=== PATIENT | male | born 1930 | race Caucasian/White ===

== ENCOUNTER 2016-12-11 11:18 | Emergency (ER) | payer OTHER ==
--- NOTE | 2016-12-11 12:17 | EDM.PDOC ---
ED HPI GENERAL MEDICAL PROBLEM - General Chief Complaint: Abdominal Pain Stated Complaint: BOWEL OBSTRUCTION Time Seen by Provider: 12/11/16 12:14 Source of Information: Reports: Patient, Family History Limitations: Reports: No Limitations - History of Present Illness INITIAL COMMENTS - FREE TEXT/NARRATIVE: 86-year-old male with chronic abdominal pain, constipation issues as a lower abdominal discomfort and is unable to have a bowel movement for the last 2-3 days. He's been giving himself enemas without any results. He has significant rectal pain. No nausea or vomiting, no fevers. Denies abdominal distention. He has had hemorrhoid surgeries but no other intra-abdominal surgeries in the past. Onset: Gradual (Over the past 3 days) Location: Reports: Other (His pain is lower abdominal and perirectal) Severity: Moderate Associated Symptoms: Denies: Chest Pain, Fever/Chills, Loss of Appetite, Nausea/ Vomiting, Shortness of Breath Abdomen Pain Score (Numeric/FACES): 2 - Related Data Allergies Allergy/AdvReac Type Severity Reaction Status Date / Time No Known Allergies Allergy Verified 12/11/16 11:54 Home Meds: Home Meds Diltiazem [Dilacor XR] 180 mg PO DAILY 12/11/16 [History] Etanercept [Enbrel] 50 mg SQ WEEKLY 12/11/16 [History] Methotrexate 10 mg PO Q7D 12/11/16 [History] Past Medical History HEENT History: Reports: Impaired Vision Gastrointestinal History: Reports: Bowel Obstruction, Other (See Below) Other Gastrointestinal History: constipation Musculoskeletal History: Reports: Arthritis, Fracture Neurological History: Reports: Other (See Below) Other Neuro History: short term 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 Social & Family History - Tobacco Use Smoking Status *Q: Never Smoker - Caffeine Use Caffeine Use: Reports: None - Recreational Drug Use Recreational Drug Use: No ED ROS GENERAL - Review of Systems Review Of Systems: See Below Constitutional: Denies: Fever, Chills HEENT: Reports: No Symptoms Respiratory: Denies: Shortness of Breath Cardiovascular: Denies: Chest Pain GI/Abdominal: Reports: Abdominal Pain, Constipation : Reports: No Symptoms Neurological: Reports: No Symptoms ED EXAM, GI/ABD - Physical Exam Exam: See Below Exam Limited By: No Limitations General Appearance: Alert, Mild Distress (Patient is fairly uncomfortable) Eyes: Bilateral: EOMI Respiratory/Chest: No Respiratory Distress Cardiovascular: Regular Rate, Rhythm GI/Abdominal Exam: Soft. No: Guarding, Rigid Rectal (Males) Exam: Tenderness (Patient has significant tenderness to digital exam of the rectum, moderate firm stool is present. No masses, stool color is normal. He does not have an exam of impaction.) Neurological: Alert, Oriented Psychiatric: Normal Affect, Normal Mood Skin Exam: Warm, Dry Course - Vital Signs Last Recorded V/S: Last Vital Signs Temp 98.1 F 12/11/16 11:59 Pulse 62 12/11/16 13:38 Resp 14 12/11/16 13:38 BP 105/53 L 12/11/16 13:38 Pulse Ox 99 12/11/16 13:38 - Orders/Labs/Meds Orders: Active Orders 24 hr Category Date Time Status Abdomen Pelvis wo Cont [CT] Stat Exams 12/11/16 12:13 Taken Labs: Laboratory Tests 12/11/16 12/11/16 Range/Units 12:25 12:25 WBC 4.0 L (4.5-11.0) K/uL RBC 4.04 L (4.30-5.90) M/uL Hgb 12.8 (12.0-15.0) g/dL Hct 38.7 L (40.0-54.0) % MCV 96 (80-98) fL MCH 32 H (27-31) pg MCHC 33 (32-36) % Plt Count 176 (150-400) K/uL Neut % (Auto) 63 (36-66) % Lymph % (Auto) 23 L (24-44) % [place] % (Auto) 10 H (2-6) % Eos % (Auto) 3 (2-4) % Baso % (Auto) 1 (0-1) % Sodium 142 (140-148) mmol/L Potassium 3.9 (3.6-5.2) mmol/L Chloride 106 (100-108) mmol/L Carbon Dioxide 29 (21-32) mmol/L Anion Gap 6.8 (5.0-14.0) mmol/L BUN 18 (7-18) mg/dL Creatinine 1.0 (0.8-1.3) mg/dL Est Cr Clr Drug Dosing 59.28 mL/min Estimated GFR (MDRD) > 60 (>60) Glucose 113 H (74-106) mg/dL Calcium 8.6 (8.5-10.1) mg/dL Total Bilirubin 1.0 (0.2-1.0) mg/dL AST 17 (15-37) U/L ALT 20 (12-78) U/L Alkaline Phosphatase 54 (46-116) U/L Total Protein 7.7 (6.4-8.2) g/dL Albumin 3.5 (3.4-5.0) g/dL Globulin 4.2 H (2.3-3.5) g/dL Albumin/Globulin Ratio 0.8 L (1.2-2.2) Meds: Medications Discontinued Medications Generic Name Dose Route Start Last Admin Trade Name Freq PRN Reason Stop Dose Admin Lidocaine HCl 10 ml 12/11/16 13:10 12/11/16 13:15 Xylocaine 2% Jelly MUCMEM 12/11/16 13:11 10 ml ONETIME ONE Administration - Re-Assessments/Exams Free Text/Narrative Re-Assessment/Exam: 12/11/16 12:17 CBC and CMP will be obtained, and prior to any enemas a abdomen and pelvis CT to rule out other form of obstruction will be obtained. 12/11/16 14:59 Labs were reassuring, CT scan confirmed some rectal stool but no obstruction or inflammatory process. The patient was given several enemas without a lot of success. I'm going to recommend daily MiraLAX for several days and he can recheck in 3-4 days if not improving satisfactorily. Departure - Departure Time of Disposition: 15:32 Disposition: Home, Self-Care 01 Condition: Good (All) Clinical Impression: Constipation by delayed colonic transit - Discharge Information Instructions: Constipation, Adult, [id number] Referrals: PCP,None [Primary Care Provider] - Forms: ED Department Discharge Care Plan Goals: Try MiraLAX 2-3 times daily for the next few days to clear constipation. Recheck in 3-4 days if not improving satisfactorily. - My Orders Last 24 Hours: My Active Orders 12/11/16 12:13 Abdomen Pelvis wo Cont [CT] Stat - Assessment/Plan Last 24 Hours: My Active Orders 12/11/16 12:13 Abdomen Pelvis wo Cont [CT] Stat
[2016-12-11] MEDS ORDERED: Lidocaine 2% Jelly 10 ML Urojet MUCMEM ONE (13:10)
[2016-12-11 13:39] VITALS: BP 105/53
== END 2016-12-11 15:32 | disposition home or self-care (01) ==
LOC: JP.ED 11:18
DX: K59.01 Slow transit constipation (principal); M19.90 Unspecified osteoarthritis, unspecified site; Z79.899 Other long term (current) drug therapy
CPT/HCPCS: 36415; 74176; 80053; 85025; 99284; 99284-25

== ENCOUNTER 2018-08-12 16:26 | Inpatient (IN) | payer MEDICARE ==
--- NOTE | 2018-08-12 16:52 | EDM.PDOC ---
ED HPI GENERAL MEDICAL PROBLEM - General Chief Complaint: General Stated Complaint: VIA [facility] Time Seen by Provider: 08/12/18 16:47 Source of Information: Reports: Patient History Limitations: Reports: No Limitations - History of Present Illness INITIAL COMMENTS - FREE TEXT/NARRATIVE: [facility]. He had been at a activity at [employer] and he must of left the facility and the alarm did not go off. Onset: Today, Other (pt took off from [facility]. ) Duration: Hour(s): Location: Reports: Chest, Other ( fever. ) Associated Symptoms: Reports: Fever/Chills - Related Data Allergies Allergy/AdvReac Type Severity Reaction Status Date / Time No Known Allergies Allergy Verified 12/11/16 11:54 Home Meds: Home Meds Diltiazem [Dilacor XR] 180 mg PO DAILY 12/11/16 [History] Etanercept [Enbrel] 50 mg SQ WEEKLY 12/11/16 [History] Methotrexate 10 mg PO Q7D 12/11/16 [History] Past Medical History HEENT History: Reports: Impaired Vision Gastrointestinal History: Reports: Bowel Obstruction, Other (See Below) Other Gastrointestinal History: constipation Musculoskeletal History: Reports: Arthritis, Fracture Neurological History: Reports: Alzheimers Disease, Other (See Below) 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 He is normally ) HEENT: Reports: No Symptoms Respiratory: Reports: Cough, Sputum Cardiovascular: Reports: No Symptoms Endocrine: Reports: No Symptoms GI/Abdominal: Reports: No Symptoms : Reports: No Symptoms Musculoskeletal: Reports: No Symptoms Skin: Reports: No Symptoms Neurological: Reports: Confusion, Other (pt is chronicly confused. ) Psychiatric: Reports: No Symptoms ED EXAM, GENERAL - Physical Exam Exam: See Below Free Text/Narrative:: pt arrived with confusion. He had left the care home and walked to [facility] with no one knowing that he had left. Exam Limited By: No Limitations General Appearance: Alert, No Apparent Distress, Other (pupils equal and reactive. ) Ears: Normal TMs Nose: Normal Inspection Throat/Mouth: Normal Inspection Head: Atraumatic Neck: Normal Inspection Respiratory/Chest: No Respiratory Distress, Rhonchi, Other (pt is coughing up green sputum. ) Cardiovascular: Regular Rate, Rhythm GI/Abdominal: Soft, Non-Tender (Male) Exam: Deferred Rectal (Males) Exam: Deferred Back Exam: Normal Inspection Extremities: Normal Inspection Neurological: Alert, Confused Course - Vital Signs Last Recorded V/S: Last Vital Signs Temp 38.2 C H 08/12/18 16:32 Pulse 113 H 08/12/18 16:32 Resp 21 H 08/12/18 16:32 BP 143/69 H 08/12/18 16:32 Pulse Ox 90 L 08/12/18 16:32 - Orders/Labs/Meds Orders: Active Orders 24 hr Category Date Time Status RT Aerosol Therapy [RC] ASDIRECTED Care 08/12/18 17:18 Active CULTURE BLOOD [BC] Urgent Lab 08/12/18 17:00 Received CULTURE BLOOD [BC] Urgent Lab 08/12/18 17:11 Received CULTURE RESPIRATORY + SMEAR [RM] Stat Lab 08/12/18 16:56 Received Acetaminophen [Tylenol] Med 08/12/18 17:36 Once 650 mg PO NOW ONE Sodium Chloride 0.9% [Normal Saline] 1,000 ml Med 08/12/18 17:45 Ordered IV ASDIRECTED Blood Culture x2 Reflex Set [OM.PC] Urgent Oth 08/12/18 16:44 Ordered Medication Orders Sodium Chloride (Normal Saline) 1,000 mls @ 500 mls/hr IV ASDIRECTED JARED Labs: Laboratory Tests 08/12/18 08/12/18 08/12/18 Range/Units 16:36 16:36 16:36 WBC 12.4 H (4.5-11.0) K/uL RBC 4.00 L (4.30-5.90) M/uL Hgb 12.4 (12.0-15.0) g/dL Hct 38.5 L (40.0-54.0) % MCV 96 (80-98) fL MCH 31 (27-31) pg MCHC 32 (32-36) % Plt Count 182 (150-400) K/uL Neut % (Auto) 89 H (36-66) % Lymph % (Auto) 4 L (24-44) % [place] % (Auto) 7 H (2-6) % Eos % (Auto) 0 L (2-4) % Baso % (Auto) 0 (0-1) % Puncture Site ABG pH (7.350-7.450) ABG pCO2 (35.0-42.0) mmHg ABG pO2 (75.0-100.0) mmHg ABG HCO3 (22.0-26.0) mmol/L ABG Total CO2 (23.0-27.0) mmol/L ABG O2 Saturation (95.0-98.0) % ABG O2 Content (15.0-23.0) %vol ABG Base Excess mm/L ABG Hemoglobin (13.5-18.0) g/dL ABG Oxyhemoglobin % ABG Carboxyhemoglobin (0.0-1.6) % ABG Methemoglobin % [place]avan Test O2 Delivery Device Sodium 135 L (140-148) mmol/L Potassium 4.4 (3.6-5.2) mmol/L Chloride 100 (100-108) mmol/L Carbon Dioxide 22 (21-32) mmol/L Anion Gap 17.4 H (5.0-14.0) mmol/L BUN 32 H (7-18) mg/dL Creatinine 1.3 (0.8-1.3) mg/dL Est Cr Clr Drug Dosing 47.85 mL/min Estimated GFR (MDRD) 52 L (>60) Glucose 193 H (74-106) mg/dL Lactic Acid 2.2 H (0.4-2.0) mmol/L Calcium 8.9 (8.5-10.1) mg/dL Total Bilirubin 0.7 (0.2-1.0) mg/dL AST 19 (15-37) U/L ALT 18 (12-78) U/L Alkaline Phosphatase 64 (46-116) U/L C-Reactive Protein 19.50 H (0.0-0.3) mg/dL Total Protein 7.4 (6.4-8.2) g/dL Albumin 2.8 L (3.4-5.0) g/dL Globulin 4.6 H (2.3-3.5) g/dL Albumin/Globulin Ratio 0.6 L (1.2-2.2) Urine Color Urine Appearance Urine pH (4.5-8.0) Ur Specific [place] (1.008-1.030) Urine Protein (NEGATIVE) mg/dL Urine Glucose (UA) (NEGATIVE) mg/dL Urine Ketones (NEGATIVE) mg/dL Urine Occult Blood (NEGATIVE) Urine Nitrite (NEGAITVE) Urine Bilirubin (NEGATIVE) Urine Urobilinogen (NORMAL) mg/dL Ur Leukocyte Esterase (NEGATIVE) Urine RBC (0-5) Urine WBC (0-5) Ur Epithelial Cells Amorphous Sediment Urine Bacteria Urine Mucus Urine Other 08/12/18 08/12/18 Range/Units 16:43 16:56 WBC (4.5-11.0) K/uL RBC (4.30-5.90) M/uL Hgb (12.0-15.0) g/dL Hct (40.0-54.0) % MCV (80-98) fL MCH (27-31) pg MCHC (32-36) % Plt Count (150-400) K/uL Neut % (Auto) (36-66) % Lymph % (Auto) (24-44) % [place] % (Auto) (2-6) % Eos % (Auto) (2-4) % Baso % (Auto) (0-1) % Puncture Site Lt brachial ABG pH 7.462 H (7.350-7.450) ABG pCO2 30.9 L (35.0-42.0) mmHg ABG pO2 81.9 (75.0-100.0) mmHg ABG HCO3 21.8 L (22.0-26.0) mmol/L ABG Total CO2 19.3 L (23.0-27.0) mmol/L ABG O2 Saturation 96.6 (95.0-98.0) % ABG O2 Content 17.0 (15.0-23.0) %vol ABG Base Excess -0.7 mm/L ABG Hemoglobin 12.8 L (13.5-18.0) g/dL ABG Oxyhemoglobin 94.4 % ABG Carboxyhemoglobin 1.7 H (0.0-1.6) % ABG Methemoglobin 0.6 % [place]avan Test Passed O2 Delivery Device Nasal cannula Sodium (140-148) mmol/L Potassium (3.6-5.2) mmol/L Chloride (100-108) mmol/L Carbon Dioxide (21-32) mmol/L Anion Gap (5.0-14.0) mmol/L BUN (7-18) mg/dL Creatinine (0.8-1.3) mg/dL Est Cr Clr Drug Dosing mL/min Estimated GFR (MDRD) (>60) Glucose (74-106) mg/dL Lactic Acid (0.4-2.0) mmol/L Calcium (8.5-10.1) mg/dL Total Bilirubin (0.2-1.0) mg/dL AST (15-37) U/L ALT (12-78) U/L Alkaline Phosphatase (46-116) U/L C-Reactive Protein (0.0-0.3) mg/dL Total Protein (6.4-8.2) g/dL Albumin (3.4-5.0) g/dL Globulin (2.3-3.5) g/dL Albumin/Globulin Ratio (1.2-2.2) Urine Color Yellow Urine Appearance Cloudy Urine pH 5.0 (4.5-8.0) Ur Specific [place] 1.020 (1.008-1.030) Urine Protein Trace (NEGATIVE) mg/dL Urine Glucose (UA) Negative (NEGATIVE) mg/dL Urine Ketones 50 H (NEGATIVE) mg/dL Urine Occult Blood Negative (NEGATIVE) Urine Nitrite Negative (NEGAITVE) Urine Bilirubin Moderate (NEGATIVE) Urine Urobilinogen Normal (NORMAL) mg/dL Ur Leukocyte Esterase Negative (NEGATIVE) Urine RBC 0-5 (0-5) Urine WBC 0-5 (0-5) Ur Epithelial Cells Few Amorphous Sediment Moderate Urine Bacteria Rare Urine Mucus Few Urine Other See note Meds: Medications Generic Name Dose Route Start Last Admin Trade Name Freq PRN Reason Stop Dose Admin Sodium Chloride 1,000 mls @ 500 mls/hr 08/12/18 17:45 Normal Saline IV ASDIRECTED JARED Discontinued Medications Generic Name Dose Route Start Last Admin Trade Name Freq PRN Reason Stop Dose Admin Albuterol 2.5 mg 08/12/18 17:18 Proventil Neb Soln NEB 08/12/18 17:19 ONETIME ONE - Re-Assessments/Exams Free Text/Narrative Re-Assessment/Exam: 08/12/18 17:37 chest xray revealed a left lower lobe pneumonia. His wbc is 12,oo. He has a crp of 19. He had o2 sats in the mid 80s. His o2 sats correct with 2 lliters of O2 Departure - Departure Time of Disposition: 17:39 Disposition: Admitted As Inpatient 67 Condition: Fair Clinical Impression: Left lower lobe pneumonia, Low O2 saturation - Discharge Information Referrals: PCP,None [Primary Care Provider] - Forms: ED Department Discharge Care Plan Goals: admit to Dr quezada. - My Orders Last 24 Hours: My Active Orders 08/12/18 16:44 Blood Culture x2 Reflex Set [OM.PC] Urgent 08/12/18 16:56 CULTURE RESPIRATORY + SMEAR [RM] Stat 08/12/18 17:00 CULTURE BLOOD [BC] Urgent 08/12/18 17:11 CULTURE BLOOD [BC] Urgent 08/12/18 17:18 RT Aerosol Therapy [RC] ASDIRECTED 08/12/18 17:36 Acetaminophen [Tylenol] 650 mg PO NOW ONE 08/12/18 17:45 Sodium Chloride 0.9% [Normal Saline] 1,000 ml IV ASDIRECTED - Assessment/Plan Last 24 Hours: My Active Orders 08/12/18 16:44 Blood Culture x2 Reflex Set [OM.PC] Urgent 08/12/18 16:56 CULTURE RESPIRATORY + SMEAR [RM] Stat 08/12/18 17:00 CULTURE BLOOD [BC] Urgent 08/12/18 17:11 CULTURE BLOOD [BC] Urgent 08/12/18 17:18 RT Aerosol Therapy [RC] ASDIRECTED 08/12/18 17:36 Acetaminophen [Tylenol] 650 mg PO NOW ONE 08/12/18 17:45 Sodium Chloride 0.9% [Normal Saline] 1,000 ml IV ASDIRECTED
[2018-08-12] MEDS ORDERED: Albuterol 0.083% 2.5 MG/3 ML Neb Soln NEB ONE (17:18)
--- NOTE | 2018-08-12 17:26 | CRLCR ---
TECHNIQUE: PA and lateral chest. INDICATION: Cough and fever. FINDINGS: Consolidation in the left lower lobe seen best on the lateral image, most likely due to pneumonia. Followup chest x-ray recommended to document resolution. The lungs are hyperinflated consistent with COPD. There is a calcified granuloma in the right upper lobe. Small, spiral metallic density projects over the upper right chest. Bibasilar scarring. Otherwise negative. Dictated by Ajith Coto MD @ 08/12/2018 5:24:21 PM Dictated by: Ajith Coto MD @ 08/12/2018 17:24:25 (Electronically Signed)
[2018-08-12] MEDS ORDERED: Acetaminophen 325 MG Tab PO ONE (17:36)
[2018-08-12] MEDS ORDERED: Sodium Chloride 0.9% 1,000 ML IV SCH (17:45)
--- NOTE | 2018-08-12 18:00 | PCM.HP ---
H&P History of Present Illness - General Date of Service: 08/12/18 Admit Problem/Dx: Admission Diagnosis/Problem Admission Diagnosis/Problem Pneumonia Source of Information: Family, Old Records, Provider, RN Notes Reviewed History Limitations: Reports: Altered Mental Status (Dementia) - History of Present Illness Initial Comments - Free Text/Narative: Mr. Porter is an 88-year-old gentleman who was admitted through the emergency department with increased confusion and hypoxia, secondary to left lung pneumonia and early sepsis. Mr. Porter apparently had been fairly stable until midafternoon. He currently resides at [facility] and was participating in a social event at the correction. He lives at the correction because of progressive dementia. He was able to make his way out of the correction and was found by law enforcement at [facility]. He was brought into the emergency department and found to have a fever. White blood cell count was elevated and he was also noted to be hypoxic. Chest x-ray shows evidence of a left basilar infiltrate. Because of his dementia Mr. Porter is unable to provide meaningful history concerning recent symptoms or review of systems. Most the information obtained is from nursing staff and family. - Related Data Allergies/Adverse Reactions: Allergies Allergy/AdvReac Type Severity Reaction Status Date / Time No Known Allergies Allergy Verified 12/11/16 11:54 Home Medications: Home Meds Diltiazem [Dilacor XR] 180 mg PO DAILY 12/11/16 [History] Methotrexate 10 mg PO Q7D 12/11/16 [History] Docusate Calcium [Surfak] 240 mg PO DAILY 08/12/18 [History] Folic Acid 1 mg PO DAILY 08/12/18 [History] Magnesium Hydroxide [Milk of Magnesia] 30 ml PO ASDIRECTED PRN 08/12/18 [History ] Mirtazapine 7.5 mg PO BEDTIME 08/12/18 [History] Polyethylene Glycol 3350 [MiraLAX] 17 g PO BEDTIME 08/12/18 [History] Past Medical History HEENT History: Reports: Impaired Vision Gastrointestinal History: Reports: Bowel Obstruction, Other (See Below) Other Gastrointestinal History: constipation Musculoskeletal History: Reports: Arthritis, Fracture Neurological History: Reports: Alzheimers Disease, Other (See Below) Other Neuro History: short term 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 Social & Family History - Tobacco Use Smoking Status *Q: Unknown Ever Smoked - Caffeine Use Caffeine Use: Reports: None H&P Review of Systems - Review of Systems: Review Of Systems: Unable To Obtain General: Reports: ROS unobtainable (Dementia) Exam - Exam Exam: See Below - Vital Signs Vital Signs: Last Vital Signs Temp 100.8 F H 08/12/18 16:32 Pulse 113 H 08/12/18 16:32 Resp 21 H 08/12/18 16:32 BP 143/69 H 08/12/18 16:32 Pulse Ox 90 L 08/12/18 16:32 Weight: 250 lb - Exam Quality Assessment: Supplemental Oxygen, DVT Prophylaxis General: Alert, Cooperative, Mild Distress. No: Oriented HEENT: Conjunctiva Clear, Hearing Intact, Normal Nasal Septum, Posterior Pharynx Clear, Pupils Equal. No: Mucosa Moist & [place]: Supple, Trachea Midline, +2 Carotid Pulse wo Bruit Lungs: Decreased Breath Sounds, Rhonchi. No: Rales, Rub, Wheezing Cardiovascular: Regular Rate, Regular Rhythm, Normal S1, Normal S2. No: Systolic Murmur, Diastolic Murmur GI/Abdominal Exam: Soft, Non-Tender, No Organomegaly, No Distention Back Exam: Normal Inspection, Full Range of Motion Extremities: Non-Tender, No Pedal Edema Skin: Warm, Dry Neurological: Cranial Nerves Intact, Strength Equal Bilateral, Normal Speech, Normal Tone, Sensation Intact. No: Focal Deficit Neuro Extensive - Mental Status: Alert, Disorientation to Person, Disorientation to Place, Disorientation to Time, Memory Loss-Remote Events, Memory Loss-Recent Events. No: Normal Cognition, Memory Intact - Patient Data Lab Results Last 24 hrs: Laboratory Results - last 24 hr 08/12/18 08/12/18 08/12/18 Range/Units 16:36 16:36 16:36 WBC 12.4 H (4.5-11.0) K/uL RBC 4.00 L (4.30-5.90) M/uL Hgb 12.4 (12.0-15.0) g/dL Hct 38.5 L (40.0-54.0) % MCV 96 (80-98) fL MCH 31 (27-31) pg MCHC 32 (32-36) % Plt Count 182 (150-400) K/uL Neut % (Auto) 89 H (36-66) % Lymph % (Auto) 4 L (24-44) % Meagher % (Auto) 7 H (2-6) % Eos % (Auto) 0 L (2-4) % Baso % (Auto) 0 (0-1) % Puncture Site ABG pH (7.350-7.450) ABG pCO2 (35.0-42.0) mmHg ABG pO2 (75.0-100.0) mmHg ABG HCO3 (22.0-26.0) mmol/L ABG Total CO2 (23.0-27.0) mmol/L ABG O2 Saturation (95.0-98.0) % ABG O2 Content (15.0-23.0) %vol ABG Base Excess mm/L ABG Hemoglobin (13.5-18.0) g/dL ABG Oxyhemoglobin % ABG Carboxyhemoglobin (0.0-1.6) % ABG Methemoglobin % Pavan Test O2 Delivery Device Sodium 135 L (140-148) mmol/L Potassium 4.4 (3.6-5.2) mmol/L Chloride 100 (100-108) mmol/L Carbon Dioxide 22 (21-32) mmol/L Anion Gap 17.4 H (5.0-14.0) mmol/L BUN 32 H (7-18) mg/dL Creatinine 1.3 (0.8-1.3) mg/dL Est Cr Clr Drug Dosing 47.85 mL/min Estimated GFR (MDRD) 52 L (>60) Glucose 193 H (74-106) mg/dL Lactic Acid 2.2 H (0.4-2.0) mmol/L Calcium 8.9 (8.5-10.1) mg/dL Total Bilirubin 0.7 (0.2-1.0) mg/dL AST 19 (15-37) U/L ALT 18 (12-78) U/L Alkaline Phosphatase 64 (46-116) U/L C-Reactive Protein 19.50 H (0.0-0.3) mg/dL Total Protein 7.4 (6.4-8.2) g/dL Albumin 2.8 L (3.4-5.0) g/dL Globulin 4.6 H (2.3-3.5) g/dL Albumin/Globulin Ratio 0.6 L (1.2-2.2) Urine Color Urine Appearance Urine pH (4.5-8.0) Ur Specific [place] (1.008-1.030) Urine Protein (NEGATIVE) mg/dL Urine Glucose (UA) (NEGATIVE) mg/dL Urine Ketones (NEGATIVE) mg/dL Urine Occult Blood (NEGATIVE) Urine Nitrite (NEGAITVE) Urine Bilirubin (NEGATIVE) Urine Urobilinogen (NORMAL) mg/dL Ur Leukocyte Esterase (NEGATIVE) Urine RBC (0-5) Urine WBC (0-5) Ur Epithelial Cells Amorphous Sediment Urine Bacteria Urine Mucus Urine Other 08/12/18 08/12/18 Range/Units 16:43 16:56 WBC (4.5-11.0) K/uL RBC (4.30-5.90) M/uL Hgb (12.0-15.0) g/dL Hct (40.0-54.0) % MCV (80-98) fL MCH (27-31) pg MCHC (32-36) % Plt Count (150-400) K/uL Neut % (Auto) (36-66) % Lymph % (Auto) (24-44) % Meagher % (Auto) (2-6) % Eos % (Auto) (2-4) % Baso % (Auto) (0-1) % Puncture Site Lt brachial ABG pH 7.462 H (7.350-7.450) ABG pCO2 30.9 L (35.0-42.0) mmHg ABG pO2 81.9 (75.0-100.0) mmHg ABG HCO3 21.8 L (22.0-26.0) mmol/L ABG Total CO2 19.3 L (23.0-27.0) mmol/L ABG O2 Saturation 96.6 (95.0-98.0) % ABG O2 Content 17.0 (15.0-23.0) %vol ABG Base Excess -0.7 mm/L ABG Hemoglobin 12.8 L (13.5-18.0) g/dL ABG Oxyhemoglobin 94.4 % ABG Carboxyhemoglobin 1.7 H (0.0-1.6) % ABG Methemoglobin 0.6 % Pavan Test Passed O2 Delivery Device Nasal cannula Sodium (140-148) mmol/L Potassium (3.6-5.2) mmol/L Chloride (100-108) mmol/L Carbon Dioxide (21-32) mmol/L Anion Gap (5.0-14.0) mmol/L BUN (7-18) mg/dL Creatinine (0.8-1.3) mg/dL Est Cr Clr Drug Dosing mL/min Estimated GFR (MDRD) (>60) Glucose (74-106) mg/dL Lactic Acid (0.4-2.0) mmol/L Calcium (8.5-10.1) mg/dL Total Bilirubin (0.2-1.0) mg/dL AST (15-37) U/L ALT (12-78) U/L Alkaline Phosphatase (46-116) U/L C-Reactive Protein (0.0-0.3) mg/dL Total Protein (6.4-8.2) g/dL Albumin (3.4-5.0) g/dL Globulin (2.3-3.5) g/dL Albumin/Globulin Ratio (1.2-2.2) Urine Color Yellow Urine Appearance Cloudy Urine pH 5.0 (4.5-8.0) Ur Specific [place] 1.020 (1.008-1.030) Urine Protein Trace (NEGATIVE) mg/dL Urine Glucose (UA) Negative (NEGATIVE) mg/dL Urine Ketones 50 H (NEGATIVE) mg/dL Urine Occult Blood Negative (NEGATIVE) Urine Nitrite Negative (NEGAITVE) Urine Bilirubin Moderate (NEGATIVE) Urine Urobilinogen Normal (NORMAL) mg/dL Ur Leukocyte Esterase Negative (NEGATIVE) Urine RBC 0-5 (0-5) Urine WBC 0-5 (0-5) Ur Epithelial Cells Few Amorphous Sediment Moderate Urine Bacteria Rare Urine Mucus Few Urine Other See note Result Diagrams: 08/12/18 16:36 08/12/18 16:36 Aldo Results Last 24 hrs: Microbiology 08/12/18 16:56 Gram Stain - Final Nasopharynx, Left *Q Meaningful Use (ADM) - VTE Risk Assess *Q Each Risk Factor Represents 1 Point: Obesity ( BMI > 25 kg/m2), Serious lung disease including pneumonia, Abnormal Pulmonary Function (COPD) Total Score 1 Point Risk Factors: 3 Each Risk Factor Represents 2 Points: None Total Score 2 Point Risk Factors: 0 Each Risk Factor Represents 3 Points: Age 75 Years or Greater Total Score 3 Point Risk Factors: 3 Each Risk Factor Represents 5 Points: None Total Score 5 Point Risk Factors: 0 Venous Thromboembolism Risk Factor Score *Q: 6 Problem List Initiated/Reviewed/Updated: Yes Orders Last 24hrs: Active Orders 24 hr Category Date Time Status Patient Status Manage Transfer [TRANSFER] Routine ADT 08/12/18 17:54 Ordered RT Aerosol Therapy [RC] ASDIRECTED Care 08/12/18 17:18 Active CULTURE BLOOD [BC] Urgent Lab 08/12/18 17:00 Received CULTURE BLOOD [BC] Urgent Lab 08/12/18 17:11 Received CULTURE RESPIRATORY + SMEAR [RM] Stat Lab 08/12/18 16:56 Results Sodium Chloride 0.9% [Normal Saline] 1,000 ml Med 08/12/18 17:45 Active IV ASDIRECTED Blood Culture x2 Reflex Set [OM.PC] Urgent Oth 08/12/18 16:44 Ordered Resuscitation Status Routine Resus Stat 08/12/18 17:55 Ordered Medication Orders Sodium Chloride (Normal Saline) 1,000 mls @ 500 mls/hr IV ASDIRECTED JARED Last Admin: 08/12/18 17:59 Dose: 500 mls/hr Assessment/Plan Comment:: ASSESSMENT AND PLAN LEFT LUNG PNEUMONIA WITH EARLY SEPSIS-increased confusion today on evaluation found to have temperature elevation, elevation white blood cell count, tachycardia, hypoxia, on his elevation in lactic acid level. Chest x-ray shows evidence of a left lower lobe infiltrate. He does have a history of rheumatoid arthritis and is currently treated with immunosuppressive medications. -IV fluids given in the emergency department per sepsis protocol -Blood and sputum cultures pending -Ongoing IV fluids for hydration -Follow up lactic acid level tonight and again in a.m. -IV Rocephin and azithromycin -Consider expansion of IV antibiotic therapy if he does not respond to initial medications, because of immunosuppressive therapy HYPOXIA-secondary to recurrent pneumonia and underlying COPD. History of a 40- pack-year smoking history although he is not smoking now for approximately 30 years. -Supplemental oxygen as needed -Continuous pulse oximetry COPD-no formal diagnosis but he does have a extensive history of smoking, chest x-ray shows evidence of hyperinflation -Nebulized albuterol and DuoNeb nebs RHEUMATOID ARTHRITIS -Outpatient medical therapy on hold CHRONIC KIDNEY DISEASE STAGE IIIa -Monitor urine output and renal function DEMENTIA-increased confusion with illness, expect increased confusion and possible agitation during hospital stay -Melatonin 9 mg by mouth daily at bedtime -Continue outpatient Remeron 15 mg by mouth daily at bedtime -Haldol 1 mg IV every 2 hours as needed MAINTENANCE ISSUES -DVT prophylaxis; Lovenox 40 mg subcutaneous daily -GI prophylaxis; not indicated -Cruz catheter; not indicated -Nutrition; regular diet -Nicotine dependence; not required CODE STATUS-DNR/DNI ADMISSION STATUS-patient will be admitted to inpatient status, expect at least a 2 night hospital stay for evaluation and management of problems as outlined above. At the time of this admission I do not reasonably expected evaluation and management of this problem will require more than a 96 hour hospital stay. DISPOSITION-anticipate discharge to home after the hospital stay. PRIMARY CARE PROVIDER-Dr. Hubbard
[2018-08-12] MEDS ORDERED: Polyethylene Glycol 3350 Powder 17 GM Packet PO PRN (19:23)
[2018-08-12] MEDS ORDERED: Haloperidol Lactate 5 MG/ML SDV IVPUSH PRN (19:23)
[2018-08-12] MEDS ORDERED: Acetaminophen 325 MG Tab PO PRN (19:23)
[2018-08-12] MEDS ORDERED: Ondansetron 4 MG/2 ML SDV IV PRN (19:23)
[2018-08-12] MEDS ORDERED: Albuterol 0.083% 2.5 MG/3 ML Neb Soln NEB PRN (19:23)
[2018-08-12] MEDS ORDERED: Sodium Chloride 0.9% 10 ML Syringe FLUSH PRN (19:23)
[2018-08-12] MEDS ORDERED: cefTRIAXone 1 GM in Sodium Chloride 0.9% 50 ML IV SCH (20:00)
[2018-08-12] MEDS: Lactated Ringers 1,000 ML IV SCH (20:42)
[2018-08-12] MEDS: Albuterol/Ipratropium 3.0-0.5 MG/3 ML Neb Soln NEB SCH (20:46)
[2018-08-12] MEDS ORDERED: Mirtazapine 15 MG Tab PO SCH (21:00)
[2018-08-12] MEDS ORDERED: Azithromycin 500 MG in Sodium Chloride 0.9% 250 ML IV SCH (21:00)
[2018-08-12] MEDS ORDERED: Melatonin 3 MG Tab PO SCH (21:00)
[2018-08-12] MEDS ORDERED: Enoxaparin 40 MG/0.4 ML Syringe SUBCUT SCH (21:00)
[2018-08-13] MEDS: Lactated Ringers 1,000 ML IV SCH (06:18)
[2018-08-13] MEDS: Albuterol/Ipratropium 3.0-0.5 MG/3 ML Neb Soln NEB SCH (07:12)
[2018-08-13] MEDS ORDERED: Diltiazem 180 MG Cap.CD PO SCH (09:00)
[2018-08-13] MEDS ORDERED: Albuterol/Ipratropium 3.0-0.5 MG/3 ML Neb Soln NEB SCH (11:00)
[2018-08-13 11:16] VITALS: BP 108/53
--- NOTE | 2018-08-13 12:34 | PCM.DCSUM1 ---
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 He was admitted for management of left lower lobe pneumonia with hypoxic respiratory failure, early sepsis and increased confusion. Diagnosis: Stroke: No - Discharge Data Discharge Date: 08/13/18 Discharge Disposition: DC/Tfer to SNF 03 Condition: Fair - Discharge Diagnosis/Problem(s) (1) Sepsis SNOMED Code(s): 04619165 ICD Code: A41.9 - SEPSIS, UNSPECIFIED ORGANISM Status: Acute Current Visit: Yes Qualifiers: Sepsis type: sepsis due to unspecified organism Qualified Code(s): A41.9 - Sepsis, unspecified organism (2) Left lower lobe pneumonia SNOMED Code(s): 213889300 ICD Code: J18.1 - LOBAR PNEUMONIA, UNSPECIFIED ORGANISM Status: Acute Current Visit: Yes Qualifiers: Pneumonia type: due to unspecified organism Qualified Code(s): J18.1 - Lobar pneumonia, unspecified organism (3) Dementia without behavioral disturbance SNOMED Code(s): 71536413 ICD Code: F03.90 - UNSPECIFIED DEMENTIA WITHOUT BEHAVIORAL DISTURBANCE Status: Chronic Current Visit: No Qualifiers: Dementia type: Alzheimer's disease Alzheimer's disease onset: late-onset Qualified Code(s): G30.1 - Alzheimer's disease with late onset; F02.80 - Dementia in other diseases classified elsewhere without behavioral disturbance - Patient Summary/Data Hospital Course: Uziel was brought to the emergency room by law-enforcement after he wondered away from the senior living. Workup in the emergency room was suggestive of a left lower lobe pneumonia and early sepsis. There was increased confusion from baseline. He was started on antibiotic therapy and admitted to the hospital for fluids and additional treatment. He was hypoxic at the time of admission. Overnight following admission his oxygen was able to be weaned off. His lactic acid did initially rise before decreasing. His tachycardia has resolved. Evidence for sepsis has resolved. Vital signs are stable and there have not been any fever since the time of presentation. He has been tolerated his regular diet. He is up and walking around on his own. He likes to take frequent walks but there have been no significant behavior issues. I believe he is safe for discharge back to the senior living. I believe he would do better in his home environment and will have space to wonder safely. He is not hypoxic and is stable for discharge at this time. antibiotics are outlined in the discharge paperwork and he will require for additional days of treatment. at the time of admission the patient had pneumonia with sepsis and hypoxic respiratory failure. It was expected that his medical problems would require a hospital stay spending at least 2 midnights. He has improved very dramatically in a much shorter time than expected. He is safe for discharge at this time after only one midnight of hospitalization. He will be returning to his senior living facility. - Patient Instructions Diet: Regular Diet as Tolerated Activity: As Tolerated Showering/Bathing: May Shower Notify Provider of: Fever, Increased Pain, Nausea and/or Vomiting Other/Special Instructions: 1. You were in the hospital for management of a left lower lobe pneumonia. Your condition improved very quickly with antibiotic management. I recommend you take azithromycin 500 mg at bedtime for four more doses and cefdinir 300 mg twice daily for 8 more doses. 2. Continue your usual home meds as previously prescribed. 3. Follow up as needed with you primary care physician. 4. Seek medical attention if you develop fever greater than 101 , severe shortness of breath or chest pain. - Discharge Plan *PRESCRIPTION DRUG MONITORING PROGRAM REVIEWED*: Not Applicable *COPY OF PRESCRIPTION DRUG MONITORING REPORT IN PATIENT ESPINOZA: Not Applicable Prescriptions/Med Rec: Azithromycin 500 mg PO BEDTIME #4 tablet Cefdinir 300 mg PO BID #8 capsule Home Medications: Home Meds Diltiazem [Dilacor XR] 180 mg PO DAILY 12/11/16 [History] Methotrexate 10 mg PO Q7D 12/11/16 [History] Docusate Calcium [Surfak] 240 mg PO DAILY 08/12/18 [History] Folic Acid 1 mg PO DAILY 08/12/18 [History] Magnesium Hydroxide [Milk of Magnesia] 30 ml PO ASDIRECTED PRN 08/12/18 [History ] Mirtazapine 7.5 mg PO BEDTIME 08/12/18 [History] Polyethylene Glycol 3350 [MiraLAX] 17 g PO BEDTIME 08/12/18 [History] Azithromycin 500 mg PO BEDTIME #4 tablet 08/13/18 [Rx] Cefdinir 300 mg PO BID #8 capsule 08/13/18 [Rx] Oxygen Therapy Mode: Room Air Patient Handouts: Cefdinir capsules, Community-Acquired Pneumonia, Adult, Easy- to-Read Referrals: PCP,None [Primary Care Provider] - (f/u with your primary care as needed ) - Discharge Summary/Plan Comment DC Time >30 min.: No - Patient Data Vitals - Most Recent: Last Vital Signs Temp 37.6 C 08/13/18 11:13 Pulse 94 08/13/18 11:13 Resp 16 08/13/18 11:13 BP 108/53 L 08/13/18 11:13 Pulse Ox 94 L 08/13/18 11:13 Weight - Most Recent: 87.7 kg I&O - Last 24 hours: Intake & Output 08/12/18 08/13/18 08/13/18 22:59 06:59 14:59 Intake Total 300 1464 240 Output Total 850 Balance 300 614 240 Lab Results - Last 24 hrs: Laboratory Results - last 24 hr 08/12/18 08/12/18 08/12/18 Range/Units 16:36 16:36 16:36 WBC 12.4 H (4.5-11.0) K/uL RBC 4.00 L (4.30-5.90) M/uL Hgb 12.4 (12.0-15.0) g/dL Hct 38.5 L (40.0-54.0) % MCV 96 (80-98) fL MCH 31 (27-31) pg MCHC 32 (32-36) % Plt Count 182 (150-400) K/uL Neut % (Auto) 89 H (36-66) % Lymph % (Auto) 4 L (24-44) % Haakon % (Auto) 7 H (2-6) % Eos % (Auto) 0 L (2-4) % Baso % (Auto) 0 (0-1) % Puncture Site ABG pH (7.350-7.450) ABG pCO2 (35.0-42.0) mmHg ABG pO2 (75.0-100.0) mmHg ABG HCO3 (22.0-26.0) mmol/L ABG Total CO2 (23.0-27.0) mmol/L ABG O2 Saturation (95.0-98.0) % ABG O2 Content (15.0-23.0) %vol ABG Base Excess mm/L ABG Hemoglobin (13.5-18.0) g/dL ABG Oxyhemoglobin % ABG Carboxyhemoglobin (0.0-1.6) % ABG Methemoglobin % Pavan Test O2 Delivery Device Sodium 135 L (140-148) mmol/L Potassium 4.4 (3.6-5.2) mmol/L Chloride 100 (100-108) mmol/L Carbon Dioxide 22 (21-32) mmol/L Anion Gap 17.4 H (5.0-14.0) mmol/L BUN 32 H (7-18) mg/dL Creatinine 1.3 (0.8-1.3) mg/dL Est Cr Clr Drug Dosing 47.85 mL/min Estimated GFR (MDRD) 52 L (>60) Glucose 193 H (74-106) mg/dL Lactic Acid 2.2 H (0.4-2.0) mmol/L Calcium 8.9 (8.5-10.1) mg/dL Magnesium (1.8-2.4) mg/dL Total Bilirubin 0.7 (0.2-1.0) mg/dL AST 19 (15-37) U/L ALT 18 (12-78) U/L Alkaline Phosphatase 64 (46-116) U/L C-Reactive Protein 19.50 H (0.0-0.3) mg/dL Total Protein 7.4 (6.4-8.2) g/dL Albumin 2.8 L (3.4-5.0) g/dL Globulin 4.6 H (2.3-3.5) g/dL Albumin/Globulin Ratio 0.6 L (1.2-2.2) Urine Color Urine Appearance Urine pH (4.5-8.0) Ur Specific [place] (1.008-1.030) Urine Protein (NEGATIVE) mg/dL Urine Glucose (UA) (NEGATIVE) mg/dL Urine Ketones (NEGATIVE) mg/dL Urine Occult Blood (NEGATIVE) Urine Nitrite (NEGAITVE) Urine Bilirubin (NEGATIVE) Urine Urobilinogen (NORMAL) mg/dL Ur Leukocyte Esterase (NEGATIVE) Urine RBC (0-5) Urine WBC (0-5) Ur Epithelial Cells Amorphous Sediment Urine Bacteria Urine Mucus Urine Other 08/12/18 08/12/18 08/12/18 Range/Units 16:43 16:56 23:10 WBC (4.5-11.0) K/uL RBC (4.30-5.90) M/uL Hgb (12.0-15.0) g/dL Hct (40.0-54.0) % MCV (80-98) fL MCH (27-31) pg MCHC (32-36) % Plt Count (150-400) K/uL Neut % (Auto) (36-66) % Lymph % (Auto) (24-44) % Haakon % (Auto) (2-6) % Eos % (Auto) (2-4) % Baso % (Auto) (0-1) % Puncture Site Lt brachial ABG pH 7.462 H (7.350-7.450) ABG pCO2 30.9 L (35.0-42.0) mmHg ABG pO2 81.9 (75.0-100.0) mmHg ABG HCO3 21.8 L (22.0-26.0) mmol/L ABG Total CO2 19.3 L (23.0-27.0) mmol/L ABG O2 Saturation 96.6 (95.0-98.0) % ABG O2 Content 17.0 (15.0-23.0) %vol ABG Base Excess -0.7 mm/L ABG Hemoglobin 12.8 L (13.5-18.0) g/dL ABG Oxyhemoglobin 94.4 % ABG Carboxyhemoglobin 1.7 H (0.0-1.6) % ABG Methemoglobin 0.6 % Pavan Test Passed O2 Delivery Device Nasal cannula Sodium (140-148) mmol/L Potassium (3.6-5.2) mmol/L Chloride (100-108) mmol/L Carbon Dioxide (21-32) mmol/L Anion Gap (5.0-14.0) mmol/L BUN (7-18) mg/dL Creatinine (0.8-1.3) mg/dL Est Cr Clr Drug Dosing mL/min Estimated GFR (MDRD) (>60) Glucose (74-106) mg/dL Lactic Acid 2.9 H (0.4-2.0) mmol/L Calcium (8.5-10.1) mg/dL Magnesium (1.8-2.4) mg/dL Total Bilirubin (0.2-1.0) mg/dL AST (15-37) U/L ALT (12-78) U/L Alkaline Phosphatase (46-116) U/L C-Reactive Protein (0.0-0.3) mg/dL Total Protein (6.4-8.2) g/dL Albumin (3.4-5.0) g/dL Globulin (2.3-3.5) g/dL Albumin/Globulin Ratio (1.2-2.2) Urine Color Yellow Urine Appearance Cloudy Urine pH 5.0 (4.5-8.0) Ur Specific Ran[place] 1.020 (1.008-1.030) Urine Protein Trace (NEGATIVE) mg/dL Urine Glucose (UA) Negative (NEGATIVE) mg/dL Urine Ketones 50 H (NEGATIVE) mg/dL Urine Occult Blood Negative (NEGATIVE) Urine Nitrite Negative (NEGAITVE) Urine Bilirubin Moderate (NEGATIVE) Urine Urobilinogen Normal (NORMAL) mg/dL Ur Leukocyte Esterase Negative (NEGATIVE) Urine RBC 0-5 (0-5) Urine WBC 0-5 (0-5) Ur Epithelial Cells Few Amorphous Sediment Moderate Urine Bacteria Rare Urine Mucus Few Urine Other See note 08/13/18 08/13/18 08/13/18 Range/Units 05:54 05:54 05:54 WBC 8.8 (4.5-11.0) K/uL RBC 3.88 L (4.30-5.90) M/uL Hgb 12.3 (12.0-15.0) g/dL Hct 37.5 L (40.0-54.0) % MCV 97 (80-98) fL MCH 32 H (27-31) pg MCHC 33 (32-36) % Plt Count 157 (150-400) K/uL Neut % (Auto) 82 H (36-66) % Lymph % (Auto) 9 L (24-44) % Haakon % (Auto) 8 H (2-6) % Eos % (Auto) 1 L (2-4) % Baso % (Auto) 0 (0-1) % Puncture Site ABG pH (7.350-7.450) ABG pCO2 (35.0-42.0) mmHg ABG pO2 (75.0-100.0) mmHg ABG HCO3 (22.0-26.0) mmol/L ABG Total CO2 (23.0-27.0) mmol/L ABG O2 Saturation (95.0-98.0) % ABG O2 Content (15.0-23.0) %vol ABG Base Excess mm/L ABG Hemoglobin (13.5-18.0) g/dL ABG Oxyhemoglobin % ABG Carboxyhemoglobin (0.0-1.6) % ABG Methemoglobin % Pavan Test O2 Delivery Device Sodium 138 L (140-148) mmol/L Potassium 4.2 (3.6-5.2) mmol/L Chloride 104 (100-108) mmol/L Carbon Dioxide 26 (21-32) mmol/L Anion Gap 12.2 (5.0-14.0) mmol/L BUN 21 H (7-18) mg/dL Creatinine 1.0 (0.8-1.3) mg/dL Est Cr Clr Drug Dosing 57.12 mL/min Estimated GFR (MDRD) > 60 (>60) Glucose 135 H (74-106) mg/dL Lactic Acid 2.0 (0.4-2.0) mmol/L Calcium 8.7 (8.5-10.1) mg/dL Magnesium 2.1 (1.8-2.4) mg/dL Total Bilirubin (0.2-1.0) mg/dL AST (15-37) U/L ALT (12-78) U/L Alkaline Phosphatase (46-116) U/L C-Reactive Protein (0.0-0.3) mg/dL Total Protein (6.4-8.2) g/dL Albumin (3.4-5.0) g/dL Globulin (2.3-3.5) g/dL Albumin/Globulin Ratio (1.2-2.2) Urine Color Urine Appearance Urine pH (4.5-8.0) Ur Specific Ranier (1.008-1.030) Urine Protein (NEGATIVE) mg/dL Urine Glucose (UA) (NEGATIVE) mg/dL Urine Ketones (NEGATIVE) mg/dL Urine Occult Blood (NEGATIVE) Urine Nitrite (NEGAITVE) Urine Bilirubin (NEGATIVE) Urine Urobilinogen (NORMAL) mg/dL Ur Leukocyte Esterase (NEGATIVE) Urine RBC (0-5) Urine WBC (0-5) Ur Epithelial Cells Amorphous Sediment Urine Bacteria Urine Mucus Urine Other JOSIE Results - Last 24 hrs: Microbiology 08/12/18 16:56 Gram Stain - Final Nasopharynx, Left Med Orders - Current: Current Medications Acetaminophen (Tylenol) 650 mg PO Q4H PRN PRN Reason: Pain (Mild 1-3)/fever Albuterol (Proventil Neb Soln) 2.5 mg NEB Q4H PRN PRN Reason: Shortness Of Breath/wheezing Albuterol/Ipratropium (Duoneb 3.0-0.5 Mg/3 Ml) 3 ml NEB QIDRT [facility] Last Admin: 08/13/18 10:54 Dose: 3 ml Diltiazem HCl (Cardizem Cd) 180 mg PO DAILY [facility] Last Admin: 08/13/18 08:26 Dose: 180 mg Enoxaparin Sodium (Lovenox) 40 mg SUBCUT BEDTIME [facility] Last Admin: 08/12/18 20:29 Dose: 40 mg Haloperidol Lactate (Haldol) 1 mg IVPUSH Q2H PRN PRN Reason: Agitation Azithromycin 500 mg/ Sodium (Chloride) 250 mls @ 250 mls/hr IV Q24H [facility] Last Admin: 08/12/18 20:55 Dose: 250 mls/hr Ceftriaxone Sodium 1 gm/ (Sodium Chloride) 50 mls @ 100 mls/hr IV Q24H [facility] Last Admin: 08/12/18 20:23 Dose: 100 mls/hr Lactated Ringer's (Ringers, Lactated) 1,000 mls @ 125 mls/hr IV ASDIRECTED [facility] Last Admin: 08/13/18 06:18 Dose: 125 mls/hr Melatonin (Melatonin) 9 mg PO BEDTIME [facility] Last Admin: 08/12/18 20:30 Dose: 9 mg Mirtazapine (Remeron) 15 mg PO BEDTIME [facility] Last Admin: 08/12/18 20:29 Dose: 15 mg Ondansetron HCl (Zofran) 4 mg IV Q4H PRN PRN Reason: Nausea/Vomiting Polyethylene Glycol (Miralax) 17 gm PO DAILY PRN PRN Reason: Constipation Sodium Chloride (Saline Flush) 10 ml FLUSH ASDIRECTED PRN PRN Reason: Keep Vein Open Discontinued Medications Acetaminophen (Tylenol) 650 mg PO NOW ONE Stop: 08/12/18 17:37 Last Admin: 08/12/18 17:46 Dose: 650 mg Albuterol (Proventil Neb Soln) 2.5 mg NEB ONETIME ONE Stop: 08/12/18 17:19 Last Admin: 08/12/18 17:46 Dose: 2.5 mg Albuterol/Ipratropium (Duoneb 3.0-0.5 Mg/3 Ml) 3 ml NEB 0700,1100,1600,2100 [facility] Last Admin: 08/13/18 07:12 Dose: 3 ml Sodium Chloride (Normal Saline) 1,000 mls @ 500 mls/hr IV ASDIRECTED [facility] Last Admin: 08/12/18 17:59 Dose: 500 mls/hr - Exam Quality Assessment: Denies: Supplemental Oxygen General: Reports: Alert, Cooperative, No Acute Distress. Denies: Oriented Lungs: Reports: Clear to Auscultation, Normal Respiratory Effort Cardiovascular: Reports: Regular Rate, Regular Rhythm GI/Abdominal Exam: Soft, No Distention Extremities: No Pedal Edema Psy/Mental Status: Reports: Alert, Normal Affect. Denies: Agitated
== END 2018-08-13 14:00 | DRG 871 ==
LOC: JP.ED 16:26 → JP.MS 17:54
PROVIDERS: ADMIT Hospitalist; ATTEND Internal Medicine
DX: A41.9 Sepsis, unspecified organism (principal); J18.1 Lobar pneumonia, unspecified organism; J96.91 Respiratory failure, unspecified with hypoxia; Z66 Do not resuscitate; N18.3 Chronic kidney disease, stage 3 (moderate); G30.1 Alzheimer's disease with late onset; F02.80 Dementia in other diseases classified elsewhere, unspecified severity, without behavioral disturbance, psychotic disturbance, mood disturbance, and anxiety; R41.0 Disorientation, unspecified; Z87.891 Personal history of nicotine dependence; M06.9 Rheumatoid arthritis, unspecified; K59.00 Constipation, unspecified; H54.7 Unspecified visual loss
CPT/HCPCS: 36415; 36600; 71046; 80053; 81001; 82803; 83605; 85025; 86140; 87040 ×2; 87070; 87205; 94640; A9270; 80048; 83735; 94762; 99285-25; J0456; J0696; J1650; J7030; J7050; J7120; J7620-GY

== ENCOUNTER 2019-02-02 03:28 | Emergency (ER) | payer MEDICARE ==
[2019-02-02 03:54] VITALS: BP 106/62; PULSE 93
[2019-02-02] MEDS ORDERED: Lidocaine 2% Jelly 10 ML Urojet MUCMEM ONE (04:31)
[2019-02-02] MEDS ORDERED: Magnesium Citrate Solution 296 ML Bottle PO ONE (04:33)
--- NOTE | 2019-02-02 04:38 | EDM.PDOC ---
ED HPI GENERAL MEDICAL PROBLEM - General Chief Complaint: General Stated Complaint: MEDICAL [facility]IA [facility] Time Seen by Provider: 02/02/19 04:30 Source of Information: Reports: Patient, Family History Limitations: Reports: Other (Dementia) - History of Present Illness INITIAL COMMENTS - FREE TEXT/NARRATIVE: Patient presents by ambulance from alf memory care describing significant rectal pain and apparent difficulty with constipation. He has moderate dementia and it's difficult to direct and redirect the patient given his focus on symptoms. In his time here thus far, he has made several trips to the bathroom with expulsion of some softer light brown stool. He is miserable Onset: Gradual Quality: Reports: Burning Severity: Mild Improves with: Reports: None Rectal Pain Score (Numeric/FACES): 10 - Related Data Allergies Allergy/AdvReac Type Severity Reaction Status Date / Time No Known Allergies Allergy Verified 02/02/19 03:48 Home Meds: Home Meds Diltiazem [Dilacor XR] 180 mg PO DAILY 12/11/16 [History] Methotrexate 10 mg PO Q7D 12/11/16 [History] Docusate Calcium [Surfak] 240 mg PO DAILY 08/12/18 [History] Folic Acid 1 mg PO DAILY 08/12/18 [History] Magnesium Hydroxide [Milk of Magnesia] 30 ml PO ASDIRECTED PRN 08/12/18 [History ] Mirtazapine 7.5 mg PO BEDTIME 08/12/18 [History] Polyethylene Glycol 3350 [MiraLAX] 17 g PO BEDTIME 08/12/18 [History] Melatonin/Pyridoxine HCl (B6) [Melatonin 3 mg Tablet] 1 each PO 02/02/19 [ History] Sennosides/Docusate Sodium [Senna Plus Tablet] 1 each PO DAILY 02/02/19 [History ] busPIRone [Buspar] 10 mg PO TID 02/02/19 [History] traZODone HCl [Trazodone HCl] 50 mg PO BEDTIME 02/02/19 [History] Past Medical History HEENT History: Reports: Cataract, Impaired Vision Cardiovascular History: Reports: Hypertension Gastrointestinal History: Reports: Bowel Obstruction, Hemorrhoids, Other (See Below) Other Gastrointestinal History: constipation Musculoskeletal History: Reports: Arthritis, Fracture, RA Neurological History: Reports: Alzheimers Disease, Other (See Below) Other Neuro History: short term memory problems Psychiatric History: Reports: Alzheimers Disease, Dementia Immunologic History: Reports: Immunosuppression Oncologic (Cancer) History: Reports: Other (See Below) Other Oncologic History: penile skin cancer Dermatologic History: Reports: Seborrheic Dermatitis - Infectious Disease History Infectious Disease History: Reports: None - Past Surgical History Head Surgeries/Procedures: Reports: None HEENT Surgical History: Reports: Cataract Surgery GI Surgical History: Reports: Colonoscopy Male Surgical History: Reports: Penile Surgery Oncologic Surgical History: Reports: Other (See Below) Other Oncologic Surgeries/Procedures: laser Social & Family History - Family History Family Medical History: Unobtainable - Tobacco Use Smoking Status *Q: Former Smoker Used Tobacco, but Quit: Yes Month/Year Tobacco Last Used: 1989 - Caffeine Use Caffeine Use: Reports: None - Recreational Drug Use Recreational Drug Use: No ED ROS GENERAL - Review of Systems Review Of Systems: Unable To Obtain (Patient's dementia limits the ability to get a reliable review of systems history.) ED EXAM, GENERAL - Physical Exam Exam: See Below Exam Limited By: Other (Dementia) Rectal (Males) Exam: Other (Very raw perirectal skin through most of gluteal cleft/buttock area.) Course - Vital Signs Last Recorded V/S: Last Vital Signs Temp 37.4 C 02/02/19 03:53 Pulse 93 02/02/19 03:53 Resp 16 02/02/19 03:53 BP 106/62 02/02/19 03:53 Pulse Ox 94 L 02/02/19 03:53 - Orders/Labs/Meds Orders: Active Orders 24 hr Category Date Time Status Dimethicone/Zinc Oxide [Rash Relief-Zinc Oxide [place]] Med 02/02/19 05:02 Active 1 gm TOP ASDIRECTED PRN Medication Orders Dimethicone/Zinc Oxide (Rash Relief-Zinc Oxide [place]) 1 gm TOP ASDIRECTED PRN PRN Reason: skin irritation Last Admin: 02/02/19 05:13 Dose: 1 film Meds: Medications Generic Name Dose Route Start Last Admin Trade Name Freq PRN Reason Stop Dose Admin Dimethicone/Zinc Oxide 1 gm 02/02/19 05:02 02/02/19 05:13 Rash Relief-Zinc Oxide [place] TOP 1 film ASDIRECTED PRN Administration skin irritation Discontinued Medications Generic Name Dose Route Start Last Admin Trade Name Freq PRN Reason Stop Dose Admin Lidocaine HCl 10 ml 02/02/19 04:31 02/02/19 04:54 Xylocaine 2% Jelly MUCMEM 02/02/19 04:32 10 ml ONETIME ONE Administration Magnesium Citrate 296 ml 02/02/19 04:33 02/02/19 04:54 Citrate Of Magnesia PO 02/02/19 04:34 296 ml ONETIME ONE Administration - Re-Assessments/Exams Free Text/Narrative Re-Assessment/Exam: The patient made several trips to the bathroom to urinate but didn't really produce much. There was expulsion of several segments of light brown soft stool. The patient then used dry paper towels to repeatedly wipe his rectal region with resulting added abrasion and trauma. Lidocaine Uroject was applied to irritated skin was mild/moderate discomfort. We attempted to get the patient to drink some mag citrate and apple juice but he was resistant, taking only very small quantities of fluid. Nursing staff recommended trying an application of Rash Relief, a mixture of dimethicone/zinc oxide. He tolerated that well. This seems to be more of a problem with rectal skin irritation than constipation per se. We will send the remainder of Rash Relief with family. Patient needs to avoid repeated wiping with coarse materials, which will be difficult to achieve given his dementia. It may require one on one supervision today to try to keep him from rubbing the skin raw. I recommend they ask about using something other than trazodone for sleep as it may be contributing to his constipation. Patient's son states that the [facility] manages all of his medications and that it took some time to get to a balance of meds to help his anxiety and memeory. He will call the facility. 02/02/19 05:43 Departure - Departure Time of Disposition: 05:46 Disposition: DC/Tfer to [facility] Condition: Fair Clinical Impression: Perirectal skin irritation, Dementia - Discharge Information *PRESCRIPTION DRUG MONITORING PROGRAM REVIEWED*: Not Applicable *COPY OF PRESCRIPTION DRUG MONITORING REPORT IN PATIENT ESPINOZA: Not Applicable Instructions: Perianal Dermatitis, Adult Referrals: Bret Hubbard MD [Primary Care Provider] - Forms: ED Department Discharge Additional Instructions: Recommend that the patient not have access to any coarse materials with which to wipe after using the toilet. Apply Rash Relief to rectal area. Use of Ramirez , Desitin, or A & D ointment to irritated area may provide some relief but there is not a simple solution to the irritation because of state of memory. Recommend continuing Miralax daily. Consideration of changing from trazodone to Seroquel, Risperdal or other similar medications may provide better symptom management and reduce constipation profile. - My Orders Last 24 Hours: My Active Orders 02/02/19 05:02 Dimethicone/Zinc Oxide [Rash Relief-Zinc Oxide [place]] 1 gm TOP ASDIRECTED PRN - Assessment/Plan Last 24 Hours: My Active Orders 02/02/19 05:02 Dimethicone/Zinc Oxide [Rash Relief-Zinc Oxide [place]] 1 gm TOP ASDIRECTED PRN
[2019-02-02] MEDS ORDERED: Dimethicone 20%/Zinc Oxide 25% 56 GM Spray Bottle TOP PRN (05:02)
== END 2019-02-02 06:00 ==
LOC: JP.ED 03:28
DX: L29.0 Pruritus ani (principal); G30.9 Alzheimer's disease, unspecified; F02.80 Dementia in other diseases classified elsewhere, unspecified severity, without behavioral disturbance, psychotic disturbance, mood disturbance, and anxiety; I10 Essential (primary) hypertension; Z79.899 Other long term (current) drug therapy; Z87.891 Personal history of nicotine dependence
CPT/HCPCS: 99284; A9270

== ENCOUNTER 2019-02-05 13:07 | Emergency (ER) | payer MEDICARE ==
--- NOTE | 2019-02-05 14:35 | EDM.PDOC ---
ED HPI GENERAL MEDICAL PROBLEM - General Chief Complaint: Gastrointestinal Problem Stated Complaint: RASH AND PAIN Time Seen by Provider: 02/05/19 14:23 Source of Information: Reports: Patient, Family, Old Records, RN Notes Reviewed History Limitations: Reports: No Limitations - History of Present Illness INITIAL COMMENTS - FREE TEXT/NARRATIVE: 88-year-old gentleman presents emergency department today complaint of rectal pain, he states he's been having problems with diarrhea his son is present also confirms this that he has been aggressively cleaning with dry paper towels has asked denuded skin in some area was in the emergency department 3 days prior for same complaint. Did have loose stools while in the ED at that time recommended symptomatic care. He returns today for ongoing diarrhea and rectal pain. Known history of dementia difficult to obtain review of systems and history most this obtained from chart review and family members Rectal Pain Score (Numeric/FACES): 2 - Related Data Allergies Allergy/AdvReac Type Severity Reaction Status Date / Time No Known Allergies Allergy Verified 02/02/19 03:48 Home Meds: Home Meds Diltiazem [Dilacor XR] 180 mg PO DAILY 12/11/16 [History] Methotrexate 10 mg PO Q7D 12/11/16 [History] Folic Acid 1 mg PO DAILY 08/12/18 [History] Magnesium Hydroxide [Milk of Magnesia] 30 ml PO ASDIRECTED PRN 08/12/18 [History ] Mirtazapine 15 mg PO BEDTIME 08/12/18 [History] Polyethylene Glycol 3350 [MiraLAX] 17 g PO BEDTIME 08/12/18 [History] Melatonin/Pyridoxine HCl (B6) [Melatonin 3 mg Tablet] 1 each PO BEDTIME [History] Sennosides/Docusate Sodium [Senna Plus Tablet] 2 each PO DAILY 02/02/19 [History ] busPIRone [Buspar] 10 mg PO TID 02/02/19 [History] traZODone HCl [Trazodone HCl] 50 mg PO BEDTIME 02/02/19 [History] Acetaminophen 650 mg PO Q4HR PRN 02/05/19 [History] Albuterol [Proventil Neb Soln] 0.83 mg NEB Q4HRRT PRN 02/05/19 [History] Divalproex Sodium 250 mg PO TID 02/05/19 [History] Mineral Oil/Petrolatum [Hydrophor Oint] 454 gm TP TID 02/05/19 [History] Past Medical History HEENT History: Reports: Cataract, Impaired Vision Cardiovascular History: Reports: Hypertension Respiratory History: Reports: Other (See Below) Other Respiratory History: pneumonia Gastrointestinal History: Reports: Bowel Obstruction, Hemorrhoids, Other (See Below) Other Gastrointestinal History: constipation Musculoskeletal History: Reports: Arthritis, Fracture, RA Neurological History: Reports: Alzheimers Disease, Other (See Below) Other Neuro History: short term memory problems Psychiatric History: Reports: Alzheimers Disease, Dementia Immunologic History: Reports: Immunosuppression Oncologic (Cancer) History: Reports: Other (See Below) Other Oncologic History: penile skin cancer Dermatologic History: Reports: Seborrheic Dermatitis - Infectious Disease History Infectious Disease History: Reports: None - Past Surgical History Head Surgeries/Procedures: Reports: None HEENT Surgical History: Reports: Cataract Surgery GI Surgical History: Reports: Colonoscopy Male Surgical History: Reports: Penile Surgery Oncologic Surgical History: Reports: Other (See Below) Other Oncologic Surgeries/Procedures: laser Social & Family History - Family History Family Medical History: Unobtainable - Tobacco Use Smoking Status *Q: Former Smoker Years of Tobacco use: 30 Packs/Tins Daily: 1 Used Tobacco, but Quit: Yes Month/Year Tobacco Last Used: 1988 Second Hand Smoke Exposure: No - Caffeine Use Caffeine Use: Reports: Coffee - Recreational Drug Use Recreational Drug Use: No ED ROS GENERAL - Review of Systems Review Of Systems: Unable To Obtain Reason Not Obtained: Dementia ED EXAM, GI/ABD - Physical Exam Exam: See Below Exam Limited By: Physical Impairment General Appearance: Alert, No Apparent Distress Respiratory/Chest: No Respiratory Distress GI/Abdominal Exam: Normal Bowel Sounds, Soft, Non-Tender Rectal (Males) Exam: Normal Rectal Tone, Tenderness, Other (Erythema around the rectum does not tolerating exam, slight pressure on the rectal sphincter causes extreme pain) Course - Vital Signs Last Recorded V/S: Last Vital Signs Temp 100.1 F 02/05/19 15:12 Pulse 77 02/05/19 15:12 Resp 16 02/05/19 15:12 BP 108/69 02/05/19 15:12 Pulse Ox 96 02/05/19 15:12 - Orders/Labs/Meds Orders: Active Orders 24 hr Category Date Time Status Peripheral IV Care [RC] . DIRECTED Care 02/05/19 15:56 Active UA W/MICROSCOPIC [URIN] Urgent Lab 02/05/19 14:29 Ordered Sodium Chloride 0.9% [Normal Saline] 1,000 ml Med 02/05/19 16:00 Active IV ASDIRECTED Sodium Chloride 0.9% [Saline Flush] Med 02/05/19 15:56 Active 10 ml FLUSH ASDIRECTED PRN Peripheral IV Insertion Adult [OM.PC] Urgent Oth 02/05/19 15:56 Ordered Medication Orders Sodium Chloride (Normal Saline) 1,000 mls @ 500 mls/hr IV ASDIRECTED JARED Last Admin: 02/05/19 16:45 Dose: 500 mls/hr Sodium Chloride (Saline Flush) 10 ml FLUSH ASDIRECTED PRN PRN Reason: Keep Vein Open Last Admin: 02/05/19 16:21 Dose: 10 ml Labs: Laboratory Tests 02/05/19 02/05/19 Range/Units 14:44 14:44 WBC 6.6 (4.5-11.0) K/uL RBC 4.19 L (4.30-5.90) M/uL Hgb 12.9 (12.0-15.0) g/dL Hct 40.8 (40.0-54.0) % MCV 97 (80-98) fL MCH 31 (27-31) pg MCHC 32 (32-36) % Plt Count 261 (150-400) K/uL Neut % (Auto) 72 H (36-66) % Lymph % (Auto) 17 L (24-44) % Dawes % (Auto) 9 H (2-6) % Eos % (Auto) 2 (2-4) % Baso % (Auto) 1 (0-1) % Sodium 140 (140-148) mmol/L Potassium 4.6 (3.6-5.2) mmol/L Chloride 104 (100-108) mmol/L Carbon Dioxide 29 (21-32) mmol/L Anion Gap 7.1 (5.0-14.0) mmol/L BUN 20 H (7-18) mg/dL Creatinine 1.1 (0.8-1.3) mg/dL Est Cr Clr Drug Dosing 51.93 mL/min Estimated GFR (MDRD) > 60 (>60) Glucose 95 (74-106) mg/dL Calcium 8.6 (8.5-10.1) mg/dL Meds: Medications Generic Name Dose Route Start Last Admin Trade Name Freq PRN Reason Stop Dose Admin Sodium Chloride 1,000 mls @ 500 mls/hr 02/05/19 16:00 02/05/19 16:45 Normal Saline IV 500 mls/hr ASDIRECTED JARED Administration Sodium Chloride 10 ml 02/05/19 15:56 02/05/19 16:21 Saline Flush FLUSH 10 ml ASDIRECTED PRN Administration Keep Vein Open Discontinued Medications Generic Name Dose Route Start Last Admin Trade Name Freq PRN Reason Stop Dose Admin Sodium Chloride 78 mls @ 0 mls/hr 02/05/19 16:15 02/05/19 16:22 Normal Saline IV 02/05/19 16:16 3 mls/hr ASDIRECTED JARED Administration KVO Iopamidol 124 ml 02/05/19 16:15 02/05/19 16:21 Isovue-300 (61%) IV 02/05/19 16:16 124 ml ASDIRECTED JARED Administration Sodium Chloride 10 ml 02/05/19 16:07 02/05/19 16:45 Saline Flush FLUSH 02/05/19 16:08 10 ml ONETIME ONE Administration Departure - Departure Time of Disposition: 17:29 Disposition: DC/Tfer to [facility] Condition: Poor Clinical Impression: Left lower lobe pneumonia Qualifiers: Pneumonia type: due to unspecified organism Qualified Code(s): J18.9 - Pneumonia, unspecified organism - Discharge Information Instructions: Community-Acquired Pneumonia, Adult Referrals: Bret Hubbard MD [Primary Care Provider] - Forms: ED Department Discharge Additional Instructions: Take full course of antibiotics, Please followup with your primary care provider in 3-5 days if not better, please call return to the emergency department with worsening of symptoms. - My Orders Last 24 Hours: My Active Orders 02/05/19 14:29 UA W/MICROSCOPIC [URIN] Urgent 02/05/19 15:56 Peripheral IV Care [RC] . DIRECTED Sodium Chloride 0.9% [Saline Flush] 10 ml FLUSH ASDIRECTED PRN Peripheral IV Insertion Adult [OM.PC] Urgent 02/05/19 16:00 Sodium Chloride 0.9% [Normal Saline] 1,000 ml IV ASDIRECTED - Assessment/Plan Last 24 Hours: My Active Orders 02/05/19 14:29 UA W/MICROSCOPIC [URIN] Urgent 02/05/19 15:56 Peripheral IV Care [RC] . DIRECTED Sodium Chloride 0.9% [Saline Flush] 10 ml FLUSH ASDIRECTED PRN Peripheral IV Insertion Adult [OM.PC] Urgent 02/05/19 16:00 Sodium Chloride 0.9% [Normal Saline] 1,000 ml IV ASDIRECTED Plan: Assessment Acuity = acute Site and laterality = left lower lobe pneumonia Etiology = probable bacterial cause Manifestations = cough Location of injury = Home Lab values = CT scan of the abdomen shows new splenomegaly with splenorenal steal, left lower lobe pneumonia, free fluid in the pelvis which is new, CBC CMP unremarkable urinalysis was never provided Plan I did review with his son lab work CT scan results because of his dementia is difficult to find the etiology of his moaning and pain issues at night elected to do a trial of a azithromycin 5 day course follow-up primary care in 3-5 days for reevaluation This note was dictated using [employer] voice recognition software please call with any questions on syntax or grammar.
[2019-02-05 15:13] VITALS: BP 108/69; PULSE 77
--- NOTE | 2019-02-05 15:29 | CRLCR ---
INDICATION: Abdominal pain. COMPARISON: CT of the abdomen and pelvis from 12/11/2016 FINDINGS: Erect examination of the chest is performed. In the abdomen, there is no sign of distention of the small bowel or colon to suggest obstruction or ileus. There is no sign of free air or distinct mass. The osseous structures are normal in appearance for the patient`s age. The lung bases are clear. There has been no interval change. IMPRESSION: Normal abdomen single-view. Dictated by Rodger Montoya MD @ Feb 05 2019 3:18PM Signed by Dr. Rodger Montoya @ Feb 05 2019 3:27PM
[2019-02-05] MEDS ORDERED: Sodium Chloride 0.9% 10 ML Syringe FLUSH PRN (15:56)
[2019-02-05] MEDS ORDERED: Sodium Chloride 0.9% 1,000 ML IV SCH (16:00)
[2019-02-05] MEDS ORDERED: Sodium Chloride 0.9% 10 ML Syringe FLUSH ONE (16:07)
[2019-02-05] MEDS ORDERED: Iopamidol 612 MG/ML 200 ML Bottle IV SCH (16:15)
--- NOTE | 2019-02-05 17:16 | CRLCT ---
INDICATION: Pelvic pain COMPARISON: 12/11/2016 TECHNIQUE: CT examination of the abdomen and pelvis was performed with the uneventful intravenous administration of 124 cc of Isovue-300 while 3 mm thick axial sections were obtained from the lung bases through the pubic symphysis. Oral contrast was not administered. Please note that all CT scans at this facility use dose modulation, iterative reconstruction, and/or weight-based dosing when appropriate to reduce radiation dose to as low as reasonably achievable. FINDINGS: In the abdomen, the liver has an area of slightly decreased enhancement in the subcapsular left lobe adjacent to the falciform ligament, consistent with a small hemangioma or focal fat, a common incidental finding in this location. The rest of the liver is normal in appearance. The spleen has increased in size and is now mildly enlarged, measuring 14.2 centimeters in length. There continues to be prominent tortuous veins around the spleen, consistent with splenic varices, with continued splenorenal shunting. The pancreas and adrenals are normal in appearance. There are a few tiny cysts in both kidneys. The kidneys are otherwise normal in appearance. The gallbladder is normal in appearance. The abdominal aorta is normal in caliber with no sign of dilatation. There is no sign of retroperitoneal mass or adenopathy. The stomach, loops of small bowel, and colon in the abdomen are normal in appearance. Again seen is a tiny fat containing periumbilical hernia. In the pelvis, the appendix is normal in appearance with no sign of inflammatory process. The loops of small bowel and colon in the pelvis are normal in appearance. The prostate remains mildly enlarged. It is otherwise normal in appearance. There is a new small amount of free fluid in the pelvis, nonspecific. The urinary bladder is normal in appearance. There is no sign of pelvic or inguinal mass or adenopathy. There is new mild consolidation of the posterior left lung base, suggestive of pneumonia. There is increased mild consolidation of the posterior-lateral right lung base, atelectasis versus pneumonia. Again seen is moderate L5-S1 disc degenerative disease. The osseous structures are otherwise normal in appearance for the patient`s age. 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 Again seen is splenorenal shunting. Normal-sized liver with no findings to suggest cirrhosis. CT of the pelvis shows new small amount of free fluid, nonspecific. This may be minimal ascites. Stable mild enlargement of the prostate. New mild consolidation of the posterior left lung base, probably pneumonia. Please note that all CT scans at this facility use dose modulation, iterative reconstruction, and/or weight-based dosing when appropriate to reduce radiation dose to as low as reasonably achievable. Dictated by Rodger Montoya MD @ Feb 05 2019 4:59PM Signed by Dr. Rodger Montoya @ Feb 05 2019 5:15PM
== END 2019-02-05 18:04 ==
LOC: JP.ED 13:07
DX: J18.9 Pneumonia, unspecified organism (principal); I10 Essential (primary) hypertension; G30.9 Alzheimer's disease, unspecified; F02.80 Dementia in other diseases classified elsewhere, unspecified severity, without behavioral disturbance, psychotic disturbance, mood disturbance, and anxiety; Z87.891 Personal history of nicotine dependence; Z79.899 Other long term (current) drug therapy
CPT/HCPCS: 36415; 74018; 74177; 80048; 85025; 99284; 99285; J7030; Q9967

== ENCOUNTER 2019-08-19 15:25 | Emergency (ER) | payer MEDICARE ==
[2019-08-19 15:37] VITALS: BP 138/86; PULSE 78
[2019-08-19] MEDS ORDERED: Dimethicone 20%/Zinc Oxide 25% 56 GM Spray Bottle TOP PRN (17:02)
[2019-08-19] MEDS ORDERED: Lidocaine 2% Jelly 10 ML Urojet MUCMEM ONE (17:04)
--- NOTE | 2019-08-19 17:11 | EDM.PDOC ---
ED HPI GENERAL MEDICAL PROBLEM - General Chief Complaint: Gastrointestinal Problem Stated Complaint: MEDICAL VIA [facility] Time Seen by Provider: 08/19/19 16:40 Source of Information: Reports: Patient (unabel to obtain history form patietn due to dementia. No nursing report called from [facility] before arrival), Family (Son arrived to ER 30-45 mintues after patient to help with history and medical needs) History Limitations: Reports: Combative/Threatening (dementia), Uncooperative - History of Present Illness INITIAL COMMENTS - FREE TEXT/NARRATIVE: 89 year old male whom has a history of recurrent rectal pain which increases behavior concerns on the memory unit at [facility]. Son was called today about patient complaining of rectal pain for the last 4 days and behaviors have become more concerning. Patient has a history of constipation and frequent enema use resulting in scarring and recurrent rectal pain. Pain and increased disruptive behavior today results in need to transfer to [facility] for assessment. Patient has similar episode in January 2019 resulting in transfer to [place] for acute geriatric behavior management. Additional work-up for confusion offered, Son is not concerned regarding any other medical infection, illness or concerns at this time. - Related Data Allergies Allergy/AdvReac Type Severity Reaction Status Date / Time amoxicillin Allergy Other Verified 08/19/19 15:34 Home Meds: Home Meds Diltiazem [Dilacor XR] 180 mg PO DAILY 12/11/16 [History] Methotrexate 10 mg PO Q7D 12/11/16 [History] Folic Acid 1 mg PO DAILY 08/12/18 [History] Magnesium Hydroxide [Milk of Magnesia] 30 ml PO ASDIRECTED PRN 08/12/18 [History ] Mirtazapine 15 mg PO BEDTIME 08/12/18 [History] polyethylene glycoL 3350 [MiraLAX] 17 g PO BEDTIME 08/12/18 [History] Melatonin/Pyridoxine HCl (B6) [Melatonin 3 mg Tablet] 3 tab PO BEDTIME 02/02/19 [History] Sennosides/Docusate Sodium [Senna Plus Tablet] 2 each PO DAILY 02/02/19 [History ] busPIRone [Buspar] 10 mg PO TID 02/02/19 [History] traZODone HCl [Trazodone HCl] 50 mg PO BEDTIME 02/02/19 [History] Acetaminophen 650 mg PO Q4HR PRN 02/05/19 [History] Albuterol [Proventil Neb Soln] 0.83 mg NEB Q4HRRT PRN 02/05/19 [History] Divalproex Sodium 250 mg PO TID 02/05/19 [History] Mineral Oil/Petrolatum [Hydrophor Oint] 454 gm TP TID 02/05/19 [History] Azithromycin 250 mg PO DAILY 02/06/19 [History] busPIRone [Buspar] 10 mg PO TID 02/06/19 [History] Lidocaine [Topicaine] 1 gm TP BID PRN 5 Days #1 tube 08/19/19 [Rx] Menthol/Zinc Oxide [Calmoseptine] 113 gm TOP BID 10 Days #1 tube 08/19/19 [Rx] Nitroglycerin [Nitro-Bid 2%] 0.5 inch TOP BID PRN 10 Days #1 tube 08/19/19 [Rx] Past Medical History HEENT History: Reports: Cataract, Impaired Vision Cardiovascular History: Reports: Hypertension Respiratory History: Reports: Other (See Below) Other Respiratory History: pneumonia Gastrointestinal History: Reports: Bowel Obstruction, Hemorrhoids, Other (See Below) Other Gastrointestinal History: constipation Musculoskeletal History: Reports: Arthritis, Fracture, RA Neurological History: Reports: Alzheimers Disease, Other (See Below) Other Neuro History: short term memory problems Psychiatric History: Reports: Alzheimers Disease, Dementia Immunologic History: Reports: Immunosuppression Oncologic (Cancer) History: Reports: Other (See Below) Other Oncologic History: penile skin cancer Dermatologic History: Reports: Seborrheic Dermatitis - Infectious Disease History Infectious Disease History: Reports: None - Past Surgical History Head Surgeries/Procedures: Reports: None HEENT Surgical History: Reports: Cataract Surgery Cardiovascular Surgical History: Reports: None Respiratory Surgical History: Reports: None GI Surgical History: Reports: Colonoscopy Male Surgical History: Reports: Penile Surgery Neurological Surgical History: Reports: None Oncologic Surgical History: Reports: Other (See Below) Other Oncologic Surgeries/Procedures: laser Dermatological Surgical History: Reports: None Social & Family History - Family History Family Medical History: Unobtainable - Tobacco Use Smoking Status *Q: Unknown Ever Smoked - Caffeine Use Caffeine Use: Reports: None ED ROS GENERAL - Review of Systems Review Of Systems: Unable To Obtain (dementia) Reason Not Obtained: dementia ED EXAM, SKIN/RASH Exam: See Below Exam Limited By: Other (dementia with limited cooperation) General Appearance: Alert, Mild Distress (which becomes moer severe with rectal/ buttocks examination), Other (flush cheeks noted) Eye Exam: Bilateral Eye: EOMI, Normal Inspection Ears: Hearing Grossly Normal Nose: Normal Inspection Throat/Mouth: Normal Inspection (lips are dry), Normal Voice, No Airway Compromise Head: Atraumatic Respiratory/Chest: No Respiratory Distress (slight cough noted with deep breathing) GI/Abdominal: Guarding, Tender (diffuse discomfort but unable to localize due to patient voluntary guarding during examination as he believes it will hurt. ) Rectal (Males) Exam: Tenderness (two small pressure (open wounds noted) right worsen than left inner glutenal celft. Exquisit perirectal tenderness noted with cleansing usig cool wet wash cloth. Very soft formed stool cleansed from rectal area. Unable to perform digital recat examiantion due to pain. ) Neurological: Confused (baseline per son ) Psychiatric: Other (dementia ) Skin: Warm, Dry Course - Vital Signs Last Recorded V/S: Last Vital Signs Temp 36.4 C 08/19/19 15:36 Pulse 78 08/19/19 15:36 Resp 16 08/19/19 15:36 BP 138/86 08/19/19 15:36 Pulse Ox 94 L 08/19/19 15:36 - Orders/Labs/Meds Orders: Active Orders 24 hr Category Date Time Status Enema [RC] ASDIRECTED Care 08/19/19 17:49 Active Dimethicone/Zinc Oxide [Rash Relief-Zinc Oxide [place]] Med 08/19/19 17:02 Active See Dose Instructions TOP ASDIRECTED PRN Medication Orders Dimethicone/Zinc Oxide (Rash Relief-Zinc Oxide [place]) 0 gm TOP ASDIRECTED PRN PRN Reason: Wound Care Last Admin: 08/19/19 17:12 Dose: 4 spray Meds: Medications Generic Name Dose Route Start Last Admin Trade Name Freq PRN Reason Stop Dose Admin Dimethicone/Zinc Oxide 0 gm 08/19/19 17:02 08/19/19 17:12 Rash Relief-Zinc Oxide [place] TOP 4 spray ASDIRECTED PRN Administration Wound Care Discontinued Medications Generic Name Dose Route Start Last Admin Trade Name Freq PRN Reason Stop Dose Admin Acetaminophen 650 mg 08/19/19 18:42 08/19/19 18:46 Tylenol PO 08/19/19 18:43 650 mg NOW ONE Administration Lidocaine HCl 5 ml 08/19/19 17:04 08/19/19 17:13 Xylocaine 2% Jelly MUCMEM 08/19/19 17:05 5 ml ONETIME ONE Administration - Re-Assessments/Exams Free Text/Narrative Re-Assessment/Exam: Patient had minimal or no change in symptoms after topical zinc spray (barrier) and topical lidocaine given. Patient had continued pain intermittently acting like he was holding in his bowel movement due to rectal pain. Patient was given a tap water enema with discomfort but improvement with near resolution of rectal pain. Patient's son is comfortable with patient receiving Tylenol and plan for ruperto- rectal care at [facility]. Follow-up with PCP for recheck to ensure healing and behavior improved with regular Bowel movement. Good bowel program needs to be addressed and continue to ensure regular very soft stools to prevent continued and recurrent ruperto-rectal pain or concerns. 08/19/19 18:39 Departure - Departure Time of Disposition: 18:43 Disposition: DC/Tfer to [facility] Clinical Impression: Perirectal skin irritation, Perirectal ulcer, Behavior concern - Discharge Information Prescriptions: Lidocaine [Topicaine] 1 gm TP BID PRN 5 Days #1 tube PRN Reason: Pain Menthol/Zinc Oxide [Calmoseptine] 113 gm TOP BID 10 Days #1 tube Nitroglycerin [Nitro-Bid 2%] 0.5 inch TOP BID PRN 10 Days #1 tube PRN Reason: Pain Instructions: Proctalgia Fugax Referrals: PCP,None [Primary Care Provider] - Forms: ED Department Discharge Additional Instructions: 1. Good bowel program and ensure regular BMs are documented. 2. Topical Calmoseptine BID to help with ruperto-rectal skin irritation and ulcerations. 3. Off loading, standing or lying down to prevent worsening ruperto-rectal skin irritation/ulcerations. 4. Topical Nitroglycerin BID prn to ruperto-rectal area for rectal spasms. 5. Topical Lidocaine gel BID prn to ruperto-rectal area for rectal pain. 6. Call PCP for recheck later this week if symptoms and behavior continues despite treatment recommendations. Sepsis Event Note - Evaluation Sepsis Screening Result: No Definite Risk - Focused Exam Vital Signs: Vital Signs Temp Pulse Resp BP Pulse Ox 08/19/19 15:36 36.4 C 78 16 138/86 94 L 08/19/19 15:27 36.4 C 78 16 138/86 94 L Date Exam was Performed: 08/19/19 Time Exam was Performed: 19:04 - My Orders Last 24 Hours: My Active Orders 08/19/19 17:02 Dimethicone/Zinc Oxide [Rash Relief-Zinc Oxide [place]] See Dose Instructions TOP ASDIRECTED PRN 08/19/19 17:49 Enema [RC] ASDIRECTED - Assessment/Plan Last 24 Hours: My Active Orders 08/19/19 17:02 Dimethicone/Zinc Oxide [Rash Relief-Zinc Oxide [place]] See Dose Instructions TOP ASDIRECTED PRN 08/19/19 17:49 Enema [RC] ASDIRECTED
[2019-08-19] MEDS ORDERED: Acetaminophen 325 MG Tab PO ONE (18:42)
== END 2019-08-19 19:13 ==
LOC: JP.ED 15:25
DX: L89.329 Pressure ulcer of left buttock, unspecified stage (principal); L89.319 Pressure ulcer of right buttock, unspecified stage; G30.9 Alzheimer's disease, unspecified; F02.81 Dementia in other diseases classified elsewhere, unspecified severity, with behavioral disturbance; I10 Essential (primary) hypertension; Z88.1 Allergy status to other antibiotic agents; Z79.899 Other long term (current) drug therapy
CPT/HCPCS: 99284; A9270